=== PATIENT | female | born 1935 | race African-American/Black ===

== ENCOUNTER 2019-01-16 12:18 | Inpatient (IN) | payer OTHER, MEDICAID ==
[~2019-01-16] VITALS: Ht 157.5 cm; Wt 57.2 kg
[~2019-01-16 12:18] MED LIST: CARV25TA47 PO; CLON0.2T PO; CLOP75TA16 PO; GABA-531 PO; LORA0.5T2 PO; OMEP20TA2 PO; SIMV20TA6 PO
[2019-01-16] MEDS ORDERED: SODIUM CHLORIDE 0.9% 1000ML BAG (SEPSIS BOLUS) IV ONE (16:30)
[2019-01-16 17:45] LABS: BASOPHILS % 0.3 % (0.0-2.0); EOSINOPHILS % 0.1 % (0.0-5.0); HEMATOCRIT. 38.2 % (36.0-48.0); HEMOGLOBIN. 12.5 g/dL (12.0-16.0); MEAN CORPUSCULAR HEMOGLOBIN 30.5 pg (28.0-32.0); MEAN CORPUSCULAR VOLUME 93.6 fL (81.0-99.0); MEAN PLATELET VOLUME 8.2 fl (7.4-10.4); MONOCYTES % 8.5 % (2.0-8.0); NEUTROPHILS % 78.1 % (40.0-76.0); PLATELET 201 x1000/uL (130-400); RED BLOOD CELL COUNT 4.08 mill/uL (4.2-5.4); RED CELL DISTRIBUTION WIDTH 15.3 % (11.6-14.6)
[2019-01-16 17:47] LABS: INR 1.1; PROTHROMBIN TIME 11.4 sec (9.1-11.1)
[2019-01-16 17:48] LABS: CHLORIDE 112 mEq/L (98-107)
[2019-01-16 17:51] LABS: BG BASE EXCESS -2.5 mmol/L (-2.0-2.0); BG CARBOXYHEMOGLOBIN 1.3 % (0.5-1.5); BG DEOXYHEMOGLOBIN 5.2 % (0.0-5.0); BG FRACTION INSPIRED OXYGEN 21; BG HCO3 ACT 22.1 mmol/L (22.0-26.0); BG METHEMOGLOBIN 0.1 % (0.0-1.5); BG OXYGEN SATURATION 94.7 % (92.0-98.5); BG OXYHEMOGLOBIN 93.4 % (94.0-97.0); BG PCO2 37.8 mmHg (35.0-45.0); BG PH 7.385 (7.350-7.450); BG PO2 77.7 mmHg (75.0-100.0); BG SAMPLE SITE RIGHT BRACHIAL; BG VENT MODE ROOM AIR
[2019-01-16 21:11] LABS: CLARITY URINE CLEAR (CLEAR); COLOR URINE YELLOW (YELLOW); KETONES URINE NEGATIVE (NEGATIVE); LEUKOCYTE ESTERASE URINE NEGATIVE (NEGATIVE); NITRITE URINE NEGATIVE (NEGATIVE); OCCULT BLOOD URINE NEGATIVE (NEGATIVE); PH URINE 5.5 (4.5-8.0); PROTEIN URINE 2+ (NEGATIVE); SPECIFIC GRAVITY URINE 1.017 (1.005-1.030); UROBILINOGEN URINE 0.2 E.U./dL (0.2-1.0)
[2019-01-16 22:10] VITALS: BP 195/80
[2019-01-17] VITALS (8 sets, daily range): BP systolic 124–195; BP diastolic 61–84
[2019-01-17] MEDS ORDERED: MEDICATION NOT ON FORMULARY EA (Simvastatin 20 MG) PO SCH (00:30)
[2019-01-17] MEDS: LORAZEPAM 1MG TABLET PO PRN ×2 (01:11→15:34)
[2019-01-17] MEDS: CLONIDINE 0.1MG TABLET PO PRN ×4 (01:12→18:33)
[2019-01-17] MEDS: OMEPRAZOLE 20MG CAPSULE EXTENDED RELEASE PO SCH (06:48)
[2019-01-17 07:09] LABS: BASOPHILS % 0.4 % (0.0-2.0); EOSINOPHILS % 0.2 % (0.0-5.0); HEMATOCRIT. 37.5 % (36.0-48.0); HEMOGLOBIN. 12.5 g/dL (12.0-16.0); LYMPHOCYTES % 24.5 % (20.0-50.0); MEAN CORPUSCULAR HEMOGLOBIN 30.9 pg (28.0-32.0); MEAN CORPUSCULAR VOLUME 92.5 fL (81.0-99.0); MEAN PLATELET VOLUME 8.5 fl (7.4-10.4); NEUTROPHILS % 65.9 % (40.0-76.0); PLATELET 207 x1000/uL (130-400); RED BLOOD CELL COUNT 4.05 mill/uL (4.2-5.4); RED CELL DISTRIBUTION WIDTH 15.2 % (11.6-14.6)
[2019-01-17 07:33] LABS: CHLORIDE 112 mEq/L (98-107)
[2019-01-17] MEDS: GABAPENTIN 300MG CAPSULE PO SCH ×3 (11:28→18:33)
[2019-01-17] MEDS: CLOPIDOGREL 75MG TABLET PO SCH (11:31)
[2019-01-17] MEDS: CARVEDILOL 25MG TABLET PO SCH ×2 (11:32→21:01)
[2019-01-17] MEDS ORDERED: CALC-25 MT (13:07)
[2019-01-17] MEDS ORDERED: FLUR30CA13 MT (13:07)
[2019-01-17] MEDS ORDERED: CLOP75TA33 MT (13:07)
[2019-01-17] MEDS ORDERED: MEMA10TA19 MT (13:07)
[2019-01-17] MEDS ORDERED: DONE10TA43 MT (13:07)
[2019-01-17] MEDS ORDERED: BENA20TA10 MT (13:07)
[2019-01-17] MEDS ORDERED: LORAZEPAM 2MG/ML CPJ IV PRN (16:00)
[2019-01-17] MEDS: DONEPEZIL HCL 5MG TABLET PO SCH (18:33)
[2019-01-17] MEDS: AMLODIPINE 5MG TABLET PO SCH (21:00)
[2019-01-17] MEDS: ATORVASTATIN CALCIUM 10MG TABLET PO SCH (21:01)
[2019-01-18] VITALS: BP 167/69
[2019-01-18 04:00] VITALS: BP 158/72
[2019-01-18] MEDS: OMEPRAZOLE 20MG CAPSULE EXTENDED RELEASE PO SCH (06:49)
[2019-01-18 07:37] LABS: CHLORIDE 110 mEq/L (98-107)
[2019-01-18 07:52] LABS: BASOPHILS % 0.5 % (0.0-2.0); EOSINOPHILS % 1.6 % (0.0-5.0); HEMATOCRIT. 37.1 % (36.0-48.0); HEMOGLOBIN. 12.3 g/dL (12.0-16.0); LYMPHOCYTES % 36.6 % (20.0-50.0); MEAN CORPUSCULAR HEMOGLOBIN 30.8 pg (28.0-32.0); MEAN CORPUSCULAR VOLUME 92.8 fL (81.0-99.0); MEAN PLATELET VOLUME 8.8 fl (7.4-10.4); MONOCYTES % 10.7 % (2.0-8.0); NEUTROPHILS % 50.6 % (40.0-76.0); PLATELET 182 x1000/uL (130-400); RED CELL DISTRIBUTION WIDTH 15.1 % (11.6-14.6)
[2019-01-18 08:00] VITALS: BP 149/54
[2019-01-18] MEDS: BENAZEPRIL 10MG TABLET PO SCH (10:16)
[2019-01-18] MEDS: DONEPEZIL HCL 5MG TABLET PO SCH (10:17)
[2019-01-18] MEDS: CARVEDILOL 25MG TABLET PO SCH ×2 (10:17→20:42)
[2019-01-18] MEDS: CLOPIDOGREL 75MG TABLET PO SCH (10:17)
[2019-01-18] MEDS: GABAPENTIN 300MG CAPSULE PO SCH ×3 (10:17→16:41)
[2019-01-18] MEDS: AMLODIPINE 5MG TABLET PO SCH ×2 (10:17→20:43)
[2019-01-18 20:00] VITALS: BP 133/85
[2019-01-18] MEDS: ATORVASTATIN CALCIUM 10MG TABLET PO SCH (20:43)
[2019-01-18] MEDS: LORAZEPAM 1MG TABLET PO PRN (20:46)
[2019-01-18] MEDS ORDERED: LORAZEPAM 2MG/ML CPJ IM PRN (23:30)
[2019-01-18] MEDS: LORAZEPAM 2MG/ML CPJ IV PRN (23:36)
[2019-01-19] VITALS (9 sets, daily range): BP systolic 96–221; BP diastolic 65–98
[2019-01-19] MEDS: CLONIDINE 0.1MG TABLET PO PRN (05:01)
[2019-01-19] MEDS: OMEPRAZOLE 20MG CAPSULE EXTENDED RELEASE PO SCH (06:19)
[2019-01-19 06:36] LABS: CHLORIDE 106 mEq/L (98-107)
[2019-01-19 06:39] LABS: BASOPHILS % 0.3 % (0.0-2.0); EOSINOPHILS % 0.8 % (0.0-5.0); HEMATOCRIT. 41.6 % (36.0-48.0); HEMOGLOBIN. 13.9 g/dL (12.0-16.0); LYMPHOCYTES % 19.3 % (20.0-50.0); MEAN CORPUSCULAR HEMOGLOBIN 30.7 pg (28.0-32.0); MEAN CORPUSCULAR VOLUME 91.8 fL (81.0-99.0); MEAN PLATELET VOLUME 8.7 fl (7.4-10.4); MONOCYTES % 9.7 % (2.0-8.0); NEUTROPHILS % 69.9 % (40.0-76.0); PLATELET 214 x1000/uL (130-400); RED BLOOD CELL COUNT 4.54 mill/uL (4.2-5.4); RED CELL DISTRIBUTION WIDTH 14.6 % (11.6-14.6)
[2019-01-19] MEDS: LORAZEPAM 1MG TABLET PO PRN (08:04)
[2019-01-19] MEDS: DONEPEZIL HCL 5MG TABLET PO SCH (08:04)
[2019-01-19] MEDS: CLOPIDOGREL 75MG TABLET PO SCH (08:04)
[2019-01-19] MEDS: GABAPENTIN 300MG CAPSULE PO SCH ×3 (08:05→17:28)
[2019-01-19] MEDS: BENAZEPRIL 10MG TABLET PO SCH (08:05)
[2019-01-19] MEDS: AMLODIPINE 5MG TABLET PO SCH ×2 (08:05→20:06)
[2019-01-19] MEDS: CARVEDILOL 25MG TABLET PO SCH ×2 (08:05→20:06)
[2019-01-19] MEDS: ATORVASTATIN CALCIUM 10MG TABLET PO SCH (20:06)
[2019-01-19] MEDS: NICOTINE 14MG PATCH TD SCH (20:25)
[2019-01-20] VITALS (7 sets, daily range): BP systolic 153–196; BP diastolic 82–120
[2019-01-20] MEDS: LORAZEPAM 2MG/ML CPJ IV PRN (00:24)
[2019-01-20] MEDS: CLONIDINE 0.1MG TABLET PO PRN ×3 (05:05→21:46)
[2019-01-20 07:31] LABS: BASOPHILS % 0.3 % (0.0-2.0); EOSINOPHILS % 0.5 % (0.0-5.0); HEMATOCRIT. 45.3 % (36.0-48.0); HEMOGLOBIN. 15.2 g/dL (12.0-16.0); LYMPHOCYTES % 16.8 % (20.0-50.0); MEAN CORPUSCULAR HEMOGLOBIN 30.8 pg (28.0-32.0); MEAN CORPUSCULAR VOLUME 92.1 fL (81.0-99.0); MEAN PLATELET VOLUME 8.8 fl (7.4-10.4); MONOCYTES % 6.3 % (2.0-8.0); NEUTROPHILS % 76.1 % (40.0-76.0); PLATELET 259 x1000/uL (130-400); RED BLOOD CELL COUNT 4.92 mill/uL (4.2-5.4); RED CELL DISTRIBUTION WIDTH 14.7 % (11.6-14.6)
[2019-01-20 07:58] LABS: CHLORIDE 104 mEq/L (98-107)
[2019-01-20] MEDS: CLOPIDOGREL 75MG TABLET PO SCH (08:27)
[2019-01-20] MEDS: GABAPENTIN 300MG CAPSULE PO SCH ×3 (08:27→17:00)
[2019-01-20] MEDS: DONEPEZIL HCL 5MG TABLET PO SCH (08:28)
[2019-01-20] MEDS: FAMOTIDINE 20MG TABLET PO SCH (08:28)
[2019-01-20] MEDS: CARVEDILOL 25MG TABLET PO SCH ×2 (08:28→20:30)
[2019-01-20] MEDS: BENAZEPRIL 10MG TABLET PO SCH (08:28)
[2019-01-20] MEDS: AMLODIPINE 5MG TABLET PO SCH ×2 (08:29→20:29)
[2019-01-20] MEDS: NICOTINE 14MG PATCH TD SCH (08:29)
[2019-01-20] MEDS ORDERED: METOPROLOL TARTRATE 25MG TABLET PO SCH ×2 (12:30→21:00)
[2019-01-20] MEDS: SODIUM CHLORIDE 0.9% 1,000 ML IV SCH (14:08)
[2019-01-20] MEDS: ATORVASTATIN CALCIUM 10MG TABLET PO SCH (20:29)
[2019-01-20] MEDS: CLONIDINE 0.1MG TABLET PO SCH (20:29)
[2019-01-20] MEDS: LORAZEPAM 1MG TABLET PO PRN (21:46)
[2019-01-20] MEDS ORDERED: HYDRALAZINE 20MG/ML VIAL IV PRN ×2 (23:15)
[2019-01-21] MEDS: SODIUM CHLORIDE 0.9% 1,000 ML IV SCH (03:39)
[2019-01-21 04:00] VITALS: BP 117/64
[2019-01-21] MEDS: CLONIDINE 0.1MG TABLET PO SCH ×2 (05:23→13:17)
[2019-01-21 08:00] VITALS: BP 156/77
[2019-01-21] MEDS ORDERED: BENAZEPRIL 10MG TABLET PO SCH (09:00)
[2019-01-21] MEDS: GABAPENTIN 300MG CAPSULE PO SCH ×2 (09:00→13:00)
[2019-01-21] MEDS: DONEPEZIL HCL 5MG TABLET PO SCH (09:00)
[2019-01-21] MEDS: NICOTINE 14MG PATCH TD SCH (09:20)
[2019-01-21] MEDS: FAMOTIDINE 20MG TABLET PO SCH (09:20)
[2019-01-21] MEDS: AMLODIPINE 5MG TABLET PO SCH (09:20)
[2019-01-21] MEDS: CLOPIDOGREL 75MG TABLET PO SCH (09:21)
[2019-01-21] MEDS: CARVEDILOL 25MG TABLET PO SCH (09:21)
== END 2019-01-21 15:46 | disposition home or self-care (01) | DRG 71 ==
LOC: ER 12:18 → 8WST 18:17 → EDBEDREQSVC 18:25 → EDBEDREQ 18:25 → ENRESERV 20:49
PROVIDERS: ADMIT Internal Medicine; ATTEND Internal Medicine
DX: G93.41 Metabolic encephalopathy (principal); E87.0 Hyperosmolality and hypernatremia; E44.1 Mild protein-calorie malnutrition; I50.32 Chronic diastolic (congestive) heart failure; G90.8 Other disorders of autonomic nervous system; R91.8 Other nonspecific abnormal finding of lung field; I11.0 Hypertensive heart disease with heart failure; D72.829 Elevated white blood cell count, unspecified; E78.5 Hyperlipidemia, unspecified; E78.00 Pure hypercholesterolemia, unspecified; F03.90 Unspecified dementia, unspecified severity, without behavioral disturbance, psychotic disturbance, mood disturbance, and anxiety; E87.8 Other disorders of electrolyte and fluid balance, not elsewhere classified; R91.1 Solitary pulmonary nodule; K21.9 Gastro-esophageal reflux disease without esophagitis; J98.4 Other disorders of lung; R31.9 Hematuria, unspecified; H40.9 Unspecified glaucoma; I25.10 Atherosclerotic heart disease of native coronary artery without angina pectoris; Z86.73 Personal history of transient ischemic attack (TIA), and cerebral infarction without residual deficits; Z95.5 Presence of coronary angioplasty implant and graft; Z78.1 Physical restraint status; Z71.6 Tobacco abuse counseling; Z88.6 Allergy status to analgesic agent; Z68.23 Body mass index [BMI] 23.0-23.9, adult; Z79.899 Other long term (current) drug therapy; Z87.891 Personal history of nicotine dependence
CPT/HCPCS: 36415; 36600; 71045; 71250; 80048; 82375; 82805; 82962; 83605; 83880; 84145; 84484; 87804; 92610; 93306; 96365; 96375; 97162; 97530; 99285; C1893; J0360; J2060; J7030; A4315